=== PATIENT | female | born 1990 | race Caucasian/White ===

== ENCOUNTER 2019-07-21 08:36 | Emergency (ER) | payer BC, OTHER ==
[~2019-07-21] VITALS: Ht 160 cm; Wt 106.6 kg
[2019-07-21 09:07] LABS: Urine Bacteria NONE SEEN /hpf (None Seen); Urine Blood Negative /uL (Negative); Urine Specific Gravity 1.022 (1.001-1.035); Urine WBC 11 /hpf (0 - 5)
[2019-07-21 10:23] VITALS: BP 126/80
== END 2019-07-21 11:04 | disposition home or self-care (01) ==
LOC: ER 08:39
DX: O23.41 Unspecified infection of urinary tract in pregnancy, first trimester (principal); Z3A.01 Less than 8 weeks gestation of pregnancy
CPT/HCPCS: 36415; 81001; 84702

== ENCOUNTER 2021-09-06 10:47 | Emergency (ER) | payer BC ==
[~2021-09-06] VITALS: Ht 160 cm; Wt 113.4 kg
[2021-09-06 11:39] LABS: Basophils # (auto) 0 10 ^3/uL (0-0.2); Basophils % (auto) 0.6 % (0.0-2.0); Eosinophils # (auto) 0.2 10 ^3/uL (0-0.8); Eosinophils % (auto) 2.3 % (0.0-7.0); Hematocrit 45.4 % (36.0-46.0); Hemoglobin 15.7 g/dL (12.2-16.2); Lymphocytes # (auto) 2.4 10 ^3/uL (0.4-5.4); Lymphocytes % (auto) 31.5 % (10.0-50.0); Mean Corpuscular Hemoglobin 30.2 pg (28.0-32.0); Mean Corpuscular Hgb Conc. 34.5 g/dL (32.0-36.0); Mean Corpuscular Volume 87.3 fL (80.0-100.0); Monocytes # (auto) 0.4 10 ^3/uL (0-1.3); Monocytes % (auto) 4.5 % (0.0-12.0); Neutrophils # (auto) 4.7 10 ^3/uL (1.6-8.6); Neutrophils % (auto) 61.1 % (37.0-80.0); Nucleated Red Blood Cells % 0.1 %; Red Cell Distribution Width 12.9 % (11.8-14.3); White Blood Cell 7.8 10^3/uL (4.4-10.8)
[2021-09-06 11:47] LABS: Urine Bacteria NONE SEEN /hpf (None Seen); Urine Blood Negative /uL (Negative); Urine Specific Gravity 1.019 (1.001-1.035); Urine WBC 2 /hpf (0 - 5)
[2021-09-06 11:49] LABS: Albumin 4.2 g/dL (3.4-5.0); Calcium 9.1 mg/dL (8.5-10.1); Potassium 4.1 mmol/L (3.5-5.1)
[2021-09-06 11:53] LABS: BUN/Creatinine Ratio 13.6; Bilirubin, Total 0.6 mg/dL (0.2-1.0); Total Protein 8.2 g/dL (6.4-8.2)
[2021-09-06 16:48] VITALS: BP 142/69
== END 2021-09-06 16:03 | disposition home or self-care (01) ==
LOC: ER 10:47
DX: F41.9 Anxiety disorder, unspecified (principal)
CPT/HCPCS: 36415; 70450; 72125; 80053; 81001; 81025; 85025

== ENCOUNTER 2022-11-06 09:47 | Emergency (ER) | payer BC, MEDICAID ==
[~2022-11-06] VITALS: Ht 160 cm; Wt 122.0 kg
[2022-11-06] MEDS ORDERED: ALBUTEROL SULF 2.5 MG/0.5ML(0.5%) NEB SOLN HHN ONE (10:15)
[2022-11-06] MEDS ORDERED: predniSONE 20 MG TAB PO ONE (10:15)
[2022-11-06] MEDS ORDERED: IPRATROPIUM BROM 0.5 MG/2.5ML INH SOL HHN ONE (10:15)
[2022-11-06 11:24] LABS: Urine Specific Gravity 1.015 (1.001-1.035)
[2022-11-06 11:25] LABS: Urine Blood 1+ /uL (Negative)
[2022-11-06] MEDS ORDERED: METH4PAK PO (11:31)
[2022-11-06] MEDS ORDERED: AZIT1POW PO (11:31)
[2022-11-06 11:45] VITALS: BP 134/108
== END 2022-11-06 11:51 | disposition home or self-care (01) ==
LOC: ER 09:47
DX: J20.9 Acute bronchitis, unspecified (principal); Z20.822 Contact with and (suspected) exposure to COVID-19
CPT/HCPCS: 36415; 71046; 81003; 87426; 87804; 93005; 94640; 99285; J7512; J7644

== ENCOUNTER 2025-07-06 13:24 | Emergency (ER) | payer MEDICAID ==
[~2025-07-06] VITALS: Ht 160 cm; Wt 118.5 kg
[~2025-07-06 13:24] MED LIST: AZIT1POW PO; METH4PAK PO
[2025-07-06 13:26] VITALS: BP 158/88; PULSE 102; RESP 13; TEMP 98.3; O2SAT 98
--- NOTE | 2025-07-06 14:29 | ED.PDOC ---
ASSISTANT DIRECTOR OF ADMISSIONS HPI Comments A 35 YEAR OLD FEMALE PRESENTS TO THE ED WITH COMPLAINT OF . PATIENT STATES SHE IS CURRENTLY , BUT IS NOT SURE HOW FAR ALONG SHE IS AT THIS TIME. PATIENT NOTES THAT SHE HAS BEEN TAKING WEGOVY FOR WEIGHT LOSS AND IS WORRIED IF IT MAY BE AFFECTING HER AND WOULD LIKE TO BE EVALUATED. PATIENT REPORTS SHE HAS ALSO BEEN EXPERIENCING MILD PELVIC CRAMPING, PROMPTING HER ASSISTANT DIRECTOR OF ADMISSIONS DR BARTON TO INSTRUCT HER TO COME TO THE ED FOR EVALUATION. PATIENT DENIES FEVER, CHILLS, SHORTNESS OF BREATH, CHEST PAIN, ABDOMINAL PAIN, NAUSEA, VOMITING, HEADACHE, OR OTHER COMPLAINTS. NO OTHER SYMPTOMS OR MODIFYING FACTORS AT THIS TIME. PATIENT IS ALERT, ORIENTED X 4, AND HAS STEADY GAIT. Chief Complaint: Time Seen by MD: 13:44 Reviewed Notes: Nurses Notes, Medications, Allergies Allergies: Coded Allergies: Penicillins (Verified Allergy, Unknown, 07/06/25) Home Meds Active Scripts Methylprednisolone (Medrol Dosepak) 4 Mg Isaak, 4 MG PO UD, #21 TAB UAD Prov:JADA MAYEN MD 11/06/22 Azithromycin (Zithromax) 1 Gm Pow, 1 PACK PO ONCE, #1 PACK Prov:JADA MAYEN MD 11/06/22 Information Source: Patient Mode of Arrival: Ambulatory Timing: Days Prehospital treatment: None Severity: Mild Vaginal Discharge: None Vaginal Lesions: None Vaginal Mass: None Onset Of Mass/Bleeding: Spontaneous Sexual Activity: Last Consensual [place]: Unknown Control: None History of: Current Blood Type: Unknown Symptoms of Possible : None Associated Signs and Symptoms: None Past Medical History PAST MEDICAL HISTORY: Denies Surgical History: Denies all surgeries 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 History: Ovarian Cysts Family History Family History: Reviewed,noncontributory to illness Social History Smoker: Non-Smoker Alcohol: Occasionally Drugs: Denies Drug Use Lives In: Home Constitutional: denies: chills, diaphoresis, fatigue, fever, malaise, sweats, weakness, others EENTM: denies: blurred vision, double vision, ear bleeding, ear discharge, ear drainage, ear pain, ear ringing, eye pain, eye redness, hearing loss, mouth pain, mouth swelling, nasal discharge, nose bleeding, nose congestion, nose pain, photophobia, tearing, throat pain, throat swelling, voice changes, others Respiratory: denies: cough, hemoptysis, orthopnea, SOB at rest, shortness of breath, SOB with excertion, stridor, wheezing, others Cardiovascular: denies: chest pain, dizzy spells, diaphoresis, Dyspnea on exertion, edema, irregular heart beat, left arm pain, lightheadedness, palpit ations, PND, syncope, others Gastrointestinal: denies: abdomen distended, abdominal pain, blood streaked b owels, constipated, diarrhea, dysphagia, difficulty swallowing, hematemesis, melena, nausea, poor appetite, poor fluid intake, rectal bleeding, rectal pain, vomiting, others Genitourinary: reports: pain (PELVIC CRAMPING), ; denies: abnormal vagina bleeding, burning, dyspareunia, dysuria, flank pain, frequency, hematuria, incontinence, vagina discharge, urgency, others Neurological: denies: dizziness, fainting, headache, left sided numbness, left sided weakness, numbness, paresthesia, pre-existing deficit, right sided numbness, right sided weakness, seizure, speech problems, tingling, tremors, weakness, others Musculoskeletal: denies: back pain, gout, joint pain, joint swelling, muscle pain, muscle stiffness, neck pain, others Integumetry: denies: bruises, change in color, change in hair/nails, dryness, laceration, lesions, lumps, rash, wounds, others Allergic/Immunocompromised: denies: Difficulty Healing, Frequent Infections, Hives, Itching, others Hematologic/Lymphatic: denies: anemia, blood clots, easy bleeding, easy bruising, swollen glands, others Endocrine: denies: excessive hunger, excessive sweating, excessive thirst, excessive urination, flushing, intolerance to cold, intolerance to heat, unexplained weight gain, unexplained weight loss, others Psychiatric: denies: anxiety, bipolar disorder, depression, hopeless, panic disorder, schizophrenia, sleepless, suicidal, others All Other Systems: Reviewed and Negative Physical Exam General Appearance: No Apparent Distress, Obese HEENT: Normal ENT Inspection, PERRL/EOMI, Pharynx Normal, TMs Normal Neck: Full Range of Motion, Non-Tender, Normal, Normal Inspection Respiratory: Chest Non-Tender, Lungs Clear, No Accessory Muscle Use, No Respiratory Distress, Normal Breath Sounds Cardiovascular: No Edema, No JVD, No Murmur, No Gallop, Normal Peripheral Pulses, Regular Rate/Rhythm Breast Exam: Deferred Gastrointestinal: No Organomegaly, Non Tender, No Pulsatile Mass, Normal Bowel Sounds, Soft Genitalia: Deferred Pelvic: Normal External Exam, Tender Adnexa (MILD TENDERNESS PELVIC, NO GUARDING AND REBOUND TENDERNESS. 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 Was a procedure done?: No Differential Diagnosis (SENIOR 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 CONSULTANT) Vaginal Bleeding: N/A Mass / Lesion: N/A Vaginal Discharge: UTI, N/A Comments NORMAL , UTI, ACUTE CYSTITIS, WELL CHECK, SIDE EFFECT OF MEDICATION X-Ray, Labs, Meds, VS Vital Signs Date Time Temp Pulse Resp B/P (MAP) Pulse Ox O2 Delivery O2 Flow Rate FiO2 07/06/25 13:26 98.3 102 13 158/88 98 98.3 Lab Test 07/06/25 14:28 07/06/25 14:23 Range/Units White Blood Count 7.9 4.4-10.8 10^3/uL Red Blood Count 4.83 4.0-5.20 10^6/uL Hemoglobin 14.4 12.2-16.2 g/dL Hematocrit 42.6 36.0-46.0 % Mean Corpuscular Volume 88.3 80.0-100.0 fL Mean Corpuscular Hemoglobin 29.8 28.0-32.0 pg Mean Corpuscular Hemoglobin Concent 33.8 32.0-36.0 g/dL Red Cell Distribution Width 13.2 11.8-14.3 % Platelet Count 206 140-450 10^3/uL Mean Platelet Volume 9.0 6.9-10.8 fL Neutrophils (%) (Auto) 70.2 37.0-80.0 % Lymphocytes (%) (Auto) 25.3 10.0-50.0 % Monocytes (%) (Auto) 3.3 0.0-12.0 % Eosinophils (%) (Auto) 0.8 0.0-7.0 % Basophils (%) (Auto) 0.4 0.0-2.0 % Neutrophils # (Auto) 5.5 1.6-8.6 10 ^3/uL Lymphocytes # (Auto) 2.0 0.4-5.4 10 ^3/uL Monocytes # (Auto) 0.3 0-1.3 10 ^3/uL Eosinophils # (Auto) 0.1 0-0.8 10 ^3/uL Basophils # (Auto) 0 0-0.2 10 ^3/uL Nucleated Red Blood Cells 0.1 % Sodium Level 141 136-145 mmol/L Potassium Level 3.6 3.5-5.1 mmol/L Chloride Level 106 98-107 mmol/L Carbon Dioxide Level 25 20-31 mmol/L Anion Gap 10 5-15 Blood Urea Nitrogen 6 L 9-23 mg/dL Creatinine 0.65 0.550-1.02 mg/dL Glomerular Filtration Rate Calc 118 >90 mL/min BUN/Creatinine Ratio 9.2 L 10.0-20.0 Serum Glucose 120 H 74-106 mg/dL Calcium Level 9.8 8.7-10.4 mg/dL Beta HCG, Quantitative 1320.3 H 1.5-4.2 mIU/mL Urine Color Light-yellow Yellow Urine Clarity Turbid H Clear Urine pH 6.0 5.0-9.0 Urine Specific [place] 1.014 1.001-1.035 Urine Protein Negative Negative Urine Ketones Negative Negative Urine Blood Negative Negative /uL Urine Nitrite Negative Negative Urine Bilirubin Negative Negative Urine Urobilinogen Normal Negative mg/dL Urine Leukocyte Esterase 2+ Negative /uL Urine RBC 2 0 - 4 /hpf Urine Microscopic WBC 4 0-5 /HPF Urine Squamous Epithelial Cells Few <5 /hpf Urine Bacteria Few H None Seen /hpf Urine Mucus Few None Seen Urine Glucose Normal Normal mg/dL Technique: Real-time ultrasound images through the pelvis using a transabdominal transducer. For better evaluation of the ovaries and endometrial stripe, an endovaginal transducer was used. Indication: PELVIC PAIN, BETA-HC Comparison: None Findings: The uterus measures 9.8 cm. Small fluid collection in the endometrium measuring 5 mm. No definitive pole or yolk sac visualized. Cervical nabothian cysts. Right ovary measures 4.3 x 3.8 x 2.1 cm. Normal flow on color doppler images. No focal masses are identified. 1.4 cm right ovarian cyst. Left ovary nonvisualized. There is trace free fluid in the pelvis. Cystic lesion in the pelvic measuring 1.4 cm. Impression: Small endometrial fluid collection measuring 5 mm, possibly an early gestational sac. No pole/ yolk sac visualized. Can not exclude ectopic . Left ovary nonvisualized. 1.4 cm right ovarian cyst. Indeterminate cystic lesion in the pelvis measuring 1.4 cm. Again, can not exclude ectopic . Trace free pelvic fluid. ATED BY: KAT RICHARD MD DICTATED DATE/TIME: 07/06/251704 SIGNED BY: KAT RICHARD MD SIGNED DATE/TIME: 07/06/251704 CC: X-Ray, Labs, Meds, VS Comment EXTERNAL MEDICAL RECORDS REVIEWED: [NONE] INDEPENDENT HISTORIANS: [NONE] SOCIAL DETERMINANTS OF HEALTH: [NONE] LABS ORDERED: CBC, BMP, UA, URINE , BETA HCG QUANT REVIEWED AND INTERPRETED RESULTS: IMAGING ORDERED: NONE TREATMENTS ORDERED: PROCEDURES PERFORMED: NONE CRITICAL CARE TIME: NONE I HAVE DISCUSSED THE PATIENT WITH THE ATTENDING PHYSICIAN DR. BIANCHI AND HE AGREES WITH THE PATIENT'S PLAN OF CARE AND DISPOSITION. 1710: I HAVE CONSULTED THE ON-CALL ASSISTANT DIRECTOR OF ADMISSIONS DR. BARTON REGARDING THIS PATIENT'S CASE AND ULTRASOUND RESULTS AND SHE HAS SAID THE PATIENT IS OKAY TO BE DISCHARGED HOME, BUT SHOULD RETURN IN 2 DAYS FOR A BETA HCG QUANT RECHECK. BASED ON HISTORY OF PRESENT ILLNESS, AND PHYSICAL EXAM, PATIENT WILL BE DISCHARGED HOME. DISCUSSED PLAN FOR DISCHARGE HOME WITH RX []. MEDICATION WARNINGS GIVEN. SHARED DECISION MAKING: PATIENT INSTRUCTED TO FOLLOW UP WITH PRIMARY CARE PROV IDER IN 1-2 DAYS FOR RE-EVALUATION OF SYMPTOMS. PATIENT VERBALIZES UNDERSTANDING TO RETURN TO ED FOR NEW OR WORSENING SYMPTOMS OR IF FOLLOW UP WITH PCP CANNOT BE OBTAINED. PATIENT FEELS COMFORTABLE GOING HOME AT THIS TIME. ALL QUESTIONS ADDRESSED AT TIME OF DISCHARGE. Images Reviewed?: Images reviewed and evaluated by me Time of 1ST Reevaluation: 17:29 Reevaluation 1ST: Improved Consultation: fish tender (1710: I HAVE CONSULTED THE ON-CALL ASSISTANT DIRECTOR OF ADMISSIONS DR. BARTON REGARDING THIS PATIENT'S CASE AND ULTRASOUND RESULTS AND SHE HAS SAID THE PATIENT IS OKAY TO BE DISCHARGED HOME, BUT SHOULD RETURN IN 2 DAYS FOR A BETA HCG QUANT RECHECK.) Patient Education/Counseling: Diagnosis, Treatment, Need For Follow Up Family Education/Counseling: Diagnosis, Treatment, Need For Follow Up Medical Screening: No EMC Exist At This Time Departure 1 Departure Time of Disposition: 17:30 Impression: Primary Impression: Early stage of Disposition: HOME / SELF CARE / HOMELESS Condition: Stable Additional Instructions: FOLLOW UP WITH PCP, ASSISTANT DIRECTOR OF ADMISSIONS, OR RETURN TO ED IN 2 DAYS FOR BETA HCG QUANT RECHECK. RETURN TO ED FOR ANY NEW OR WORSENING SYMPTOMS. Discharged With: Self, Spouse Critical Care Note Critical Care Time?: No Stability Stability form required: No I personally scribed for SUE GONZALEZ ([email or web address]) on 07/06/25 at 14:29. Electronically submitted by Pete Alarcon (Clean Te[employer]). I personally scribed for SUE GONZALEZ ([email or web address]) on 07/06/25 at 14:32. Electronically submitted by Pete Alarcon ([employer]). I personally scribed for SUE GONZALEZ ([email or web address]) on 07/06/25 at 17:16. Electronically submitted by Pete Alarcon ([employer]). SUE GONZALEZ Jul 06, 2025 14:29
[2025-07-06 14:56] LABS: Hematocrit 42.6 % (36.0-46.0); Hemoglobin 14.4 g/dL (12.2-16.2); Mean Corpuscular Hemoglobin 29.8 pg (28.0-32.0); Mean Corpuscular Volume 88.3 fL (80.0-100.0); Nucleated Red Blood Cells % 0.1 %
[2025-07-06 15:04] LABS: Chloride 106 mmol/L (98-107); Potassium 3.6 mmol/L (3.5-5.1); Sodium 141 mmol/L (136-145)
[2025-07-06 15:05] LABS: Anion Gap 10 (5-15); Calcium 9.8 mg/dL (8.7-10.4); Carbon Dioxide 25 mmol/L (20-31)
[2025-07-06 15:10] LABS: BUN/Creatinine Ratio 9.2 (10.0-20.0)
[2025-07-06 15:11] LABS: Blood Urea Nitrogen 6 mg/dL (9-23); Glucose 120 mg/dL (74-106)
[2025-07-06 16:18] LABS: Urine Protein, UAD Negative (Negative)
--- NOTE | 2025-07-06 17:05 | DVH ---
Technique: Real-time ultrasound images through the pelvis using a transabdominal transducer. For bett er evaluation of the ovaries and endometrial stripe, an endovaginal transducer was used. Indication: PELVIC PAIN, BETA-HC Comparison: None Findings: The uterus measures 9.8 cm. Small fluid collection in the endometrium measuring 5 mm. No definitive pole or yolk sac visualized. Cervical nabothian cysts. Right ovary measures 4.3 x 3.8 x 2.1 cm. Normal flow on color doppler images. No focal masses are jim ntified. 1.4 cm right ovarian cyst. Left ovary nonvisualized. There is trace free fluid in the pelvis. Cystic lesion in the pelvic measuring 1.4 cm. Impression: Small endometrial fluid collection measuring 5 mm, possibly an early gestational sac. No pole/ yolk sac visualized. Can not exclude ectopic . Left ovary nonvisualized. 1.4 cm right ovarian cyst. Indeterminate cystic lesion in the pelvis measuring 1.4 cm. Again, can not exclude ectopic . Trace free pelvic fluid.
== END 2025-07-06 17:26 | disposition home or self-care (01) ==
LOC: ER 13:24
DX: O26.10 Low weight gain in pregnancy, unspecified trimester (principal); R10.2 Pelvic and perineal pain; Z3A.00 Weeks of gestation of pregnancy not specified; Z88.0 Allergy status to penicillin
CPT/HCPCS: 36415; 76801; 80048; 81001; 84702; 85025

== ENCOUNTER 2025-07-11 11:49 | Outpatient (CLI) | payer MEDICAID | END 2025-07-11 17:00 | disposition home or self-care (01) | LOC: LAB 11:49 | PROVIDERS: ATTEND Obstetrics & Gynecology | DX: N93.9 Abnormal uterine and vaginal bleeding, unspecified (principal) | CPT/HCPCS: 36415; 84144; 84702 ==

== ENCOUNTER 2025-07-13 06:16 | Outpatient (CLI) | payer MEDICAID | END 2025-07-13 17:00 | disposition home or self-care (01) | LOC: LAB 06:16 | PROVIDERS: ATTEND Obstetrics & Gynecology | DX: N93.9 Abnormal uterine and vaginal bleeding, unspecified (principal) | CPT/HCPCS: 36415; 84702 ==

== ENCOUNTER 2025-08-29 06:55 | Outpatient (CLI) | payer MEDICAID | END 2025-08-29 17:00 | disposition home or self-care (01) | LOC: LAB 06:55 | PROVIDERS: ATTEND Obstetrics & Gynecology | CPT/HCPCS: 82951 ==

== ENCOUNTER → 2025-09-08 | Outpatient (CLI) | payer MEDICAID ==
[2025-09-08 09:06] LABS: Hematocrit 42.2 % (36.0-46.0); Hemoglobin 14.3 g/dL (12.2-16.2); Mean Corpuscular Hemoglobin 29.6 pg (28.0-32.0); Mean Corpuscular Volume 87.4 fL (80.0-100.0); Nucleated Red Blood Cells % 0.1 %
[2025-09-08 10:37] LABS: Protein, Urine < 6.0 mg/dL (1-14)
[2025-09-08 10:38] LABS: Amphetamine Screen, Urine Neg (NEGATIVE); Barbiturate Scree,Urine Neg (NEGATIVE); Benzodiazephine Screen, Urine Neg (NEGATIVE); Cannabinoid Screen, Urine Neg (NEGATIVE); Cocaine Screen, Urine Neg (NEGATIVE); Opiate Scree,Urine Neg (NEGATIVE); Phencyclidine Screen, Urine Neg (NEGATIVE)
[2025-09-08 11:22] LABS: Free T4 (Free Thyroxine) 1.0 ng/dL (0.89-1.76)
[2025-09-08 11:53] LABS: Thyroid Stimulating Hormone 0.92 uIU/mL (0.55-4.78)
[2025-09-08 12:00] LABS: Beta HCG, Quantitative 23597.4 mIU/mL (1.5-4.2)
[2025-09-08 12:11] LABS: 24 Hr. Total Protein, Urine 119.99980 mg/24 Hr (<149.1); Urine Total Volume, 24 Hours 2000 mL
[2025-09-09 17:07] LABS: Chlamydia Trachomatis, NAA Negative (Negative); Neisseria gonorrhoeae, NAA Negative (Negative)
== END | disposition home or self-care (01) ==
LOC: LAB 08:33
DX: O23.41 Unspecified infection of urinary tract in pregnancy, first trimester (principal); O99.281 Endocrine, nutritional and metabolic diseases complicating pregnancy, first trimester; O10.911 Unspecified pre-existing hypertension complicating pregnancy, first trimester; N39.0 Urinary tract infection, site not specified; E28.2 Polycystic ovarian syndrome; Z11.2 Encounter for screening for other bacterial diseases; Z11.3 Encounter for screening for infections with a predominantly sexual mode of transmission; Z01.419 Encounter for gynecological examination (general) (routine) without abnormal findings; Z3A.00 Weeks of gestation of pregnancy not specified
CPT/HCPCS: 36415; 80307; 83036; 84144; 84156; 84439; 84443; 84702; 85025; 86703; 86762; 86787; 86850; 86900; 86901; 87086; 87340

== ENCOUNTER 2025-10-11 12:41 | Emergency (ER) | payer MEDICAID ==
[~2025-10-11] VITALS: Ht 160 cm; Wt 126.7 kg
--- NOTE | 2025-10-11 13:37 | ED.PDOC ---
History of Present Illness HPI Comments 35F presents to the ER w/ prior medical Hx of an Ovarian Cyst and the c/c of LE pain. Pt reports on currently being 17 weeks and was recently having lower back pain associated w/ LLE numbness/BLE thigh numbness when standing for to long. Denies any symptoms at this time. Patient denies any CP, SOB, dizziness, numbness, weakness, fever, chills, or recent fall. Chief Complaint: Lower Extremity Time Seen by MD: 13:30 Primary Care Provider: MARIAMAIES Reviewed Notes: Nurses Notes, Medications, Allergies Allergies: Coded Allergies: Penicillins (Verified Allergy, Unknown, 07/06/25) Home Meds Active Scripts Methylprednisolone (Medrol Dosepak) 4 Mg Isaak, 4 MG PO UD, #21 TAB UAD Prov:JADA MAYEN MD 11/06/22 Azithromycin (Zithromax) 1 Gm Pow, 1 PACK PO ONCE, #1 PACK Prov:JADA MAYEN MD 11/06/22 Information Source: Patient Mode of Arrival: Ambulatory Severity: Moderate Timing: Came on: Gradually Duration: Since onset Prehospital treatment: None Past Medical History PAST MEDICAL HISTORY: Denies Surgical History: Denies all surgeries 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 Family History Family History: Reviewed,noncontributory to illness, Unknown Social History Smoker: Non-Smoker Alcohol: Denies ETOH Use Drugs: Denies Drug Use Lives In: Home Constitutional: denies: chills, diaphoresis, fatigue, fever, malaise, sweats, weakness, others EENTM: denies: blurred vision, double vision, ear bleeding, ear discharge, ear drainage, ear pain, ear ringing, eye pain, eye redness, hearing loss, mouth pain, mouth swelling, nasal discharge, nose bleeding, nose congestion, nose pain, photophobia, tearing, throat pain, throat swelling, voice changes, others Respiratory: denies: cough, hemoptysis, orthopnea, SOB at rest, shortness of breath, SOB with excertion, stridor, wheezing, others Cardiovascular: denies: chest pain, dizzy spells, diaphoresis, Dyspnea on exertion, edema, irregular heart beat, left arm pain, lightheadedness, palpitations, PND, syncope, others Gastrointestinal: denies: abdomen distended, abdominal pain, blood streaked bowels, constipated, diarrhea, dysphagia, difficulty swallowing, hematemesis, m magy, nausea, poor appetite, poor fluid intake, rectal bleeding, rectal pain, vomiting, others Genitourinary: reports: (17 weeks); denies: abnormal vagina bleeding, burning, dyspareunia, dysuria, flank pain, frequency, hematuria, incontinence, pain, vagina discharge, urgency, others Neurological: reports: numbness (LLE and BLE thigh numbness); denies: dizziness, fainting, headache, left sided numbness, left sided weakness, paresthesia, pre-existing deficit, right sided numbness, right sided weakness, seizure, speech problems, tingling, tremors, weakness, others Musculoskeletal: denies: back pain, gout, joint pain, joint swelling, muscle pain, muscle stiffness, neck pain, others Integumetry: denies: bruises, change in color, change in hair/nails, dryness, laceration, lesions, lumps, rash, wounds, others Allergic/Immunocompromised: denies: Difficulty Healing, Frequent Infections, Hives, Itching, others Hematologic/Lymphatic: denies: anemia, blood clots, easy bleeding, easy bruising, swollen glands, others Endocrine: denies: excessive hunger, excessive sweating, excessive thirst, excessive urination, flushing, intolerance to cold, intolerance to heat, unexplained weight gain, unexplained weight loss, others Psychiatric: denies: anxiety, bipolar disorder, depression, hopeless, panic disorder, schizophrenia, sleepless, suicidal, others All Other Systems: Reviewed and Negative Physical Exam General Appearance: Moderate Distress, Normal HEENT: Normal ENT Inspection, Pharynx Normal, TMs Normal Neck: Full Range of Motion, Non-Tender, Normal, Normal Inspection Respiratory: Chest Non-Tender, Lungs Clear, No Accessory Muscle Use, No Respiratory Distress, Normal Breath Sounds Cardiovascular: No Edema, No JVD, No Murmur, No Gallop, Normal Peripheral Pulses, Regular Rate/Rhythm Breast Exam: Deferred Gastrointestinal: No Organomegaly, Non Tender, No Pulsatile Mass, Normal Bowel Sounds, Soft Genitalia: Deferred Pelvic: Deferred Rectal: Deferred Extremities: No calf tenderness, Normal capillary refill, Normal inspection, Normal range of motion, Non-tender, No pedal edema Musculoskeletal : Apperance: Normal Neurologic: Alert, 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 Was a procedure done?: No Differential Dx Considerations may include: Leg swelling X-Ray, Labs, Meds, VS Vital Signs Date Time Temp Pulse Resp B/P (MAP) Pulse Ox O2 Delivery O2 Flow Rate FiO2 10/11/25 12:43 98.2 95 18 122/74 99 98.2 Patient alert. Complaining of leg swelling. Vitals stable. Answering questions. Saturation pristine on room air. No urinary symptoms. DVT study reviewed within normal limits. Explained to the patient. Was told to follow up with her primary care physician. Was told to come back if there is any problem. Time of 1ST Reevaluation: 14:00 Reevaluation 1ST: Unchanged Patient Education/Counseling: Diagnosis, Treatment, Prognosis Family Education/Counseling: No Family Present SEPSIS Sepsis Screen Date sepsis recognized/suspect: Oct 11, 2025 Time Sepsis recognized/suspect: 1245 Recent Procedure: No On Antibiotic Therapy: No Respiratory Rate >20: No Heart Rate >90: Yes Temp<36 C (96.8 F) or >38.3 C: No SBP <90 or MAP <65 mmHG: No New Acute Mental Status Change: No Is the patient on CPAP, BIPAP,: No Physician Orders Bilat Lower Dvt (10/11/25 13:52) Urinalysis (10/11/25 13:52) Vital Signs Date Time Temp Pulse Resp B/P (MAP) Pulse Ox O2 Delivery O2 Flow Rate FiO2 10/11/25 12:43 98.2 95 18 122/74 99 98.2 Departure 1 Departure Time of Disposition: 16:05 Impression: Primary Impression: Normal Qualified Codes: Z34.90 - Encounter for supervision of normal , unspecified, unspecified trimester Additional Impression: Muscle strain Disposition: 01 HOME / SELF CARE / HOMELESS Condition: Good Discharged With: Self Critical Care Note Critical Care Time?: No Stability Stability form required: No Heart Score Heart Score: Heart Score Response (Comments) Value History N/A 0 EKG N/A 0 Age N/A 0 Risk Factors N/A 0 Troponin N/A 0 Total 0 I personally scribed for ARIAS,ALLISON MD ([email or web address]) on 10/11/25 at 13:37. Electronically submitted by Edu Salas ([email or web address]). ALLISON BIANCHI MD Oct 11, 2025 13:37
--- NOTE | 2025-10-11 14:53 | DVH ---
Bilateral lower extremity venous duplex Clinical History: dvt Comparison: None Technique: Duplex Doppler evaluation of the deep venous systems of both lower extremities from the common femoral veins to the popliteal veins including color Doppler and spectral/pulsed waveform analysis was performed. Findings: RIGHT SIDE: The common femoral vein demonstrates appropriate compressibility and waveform variability. There is compressibility/patency of the great saphenous vein at the proximal thigh. The femoral vein demonstrates appropriate compressibility and waveform variability. The deep femoral vein demonstrates appropriate compressibility and waveform variability. The popliteal vein demonstrates appropriate compressibility and waveform variability. Rouleaux formation visualized in the blood flow of the popliteal on the right. There is normal compressibility at the tibioperoneal trunk. LEFT SIDE: The common femoral vein demonstrates appropriate compressibility and waveform variability. There is compressibility/patency of the great saphenous vein at the proximal thigh. The femoral vein demonstrates appropriate compressibility and waveform variability. The deep femoral vein demonstrates appropriate compressibility and waveform variability. The popliteal vein demonstrates appropriate compressibility and waveform variability. Rouleaux flow formation in the left popliteal also visualized. There is normal compressibility at the tibioperoneal trunk. Impression: 1. No right or left femoropopliteal venous thrombosis. 2. Rouleaux formation of the blood flow noted in the right and left popliteal vein.
[2025-10-11 16:16] VITALS: BP 146/93; PULSE 87; RESP 18; TEMP 98.7
[2025-10-11 16:19] VITALS: O2SAT 99
== END 2025-10-11 16:19 | disposition home or self-care (01) ==
LOC: ER 12:41
DX: O26.891 Other specified pregnancy related conditions, first trimester (principal); S39.012A Strain of muscle, fascia and tendon of lower back, initial encounter; Z3A.00 Weeks of gestation of pregnancy not specified; Z88.0 Allergy status to penicillin; X58.XXXA Exposure to other specified factors, initial encounter; Y93.89 Activity, other specified; Y92.89 Other specified places as the place of occurrence of the external cause; Y99.8 Other external cause status
CPT/HCPCS: 93970

== ENCOUNTER 2025-10-29 09:32 | Observation (INO) | payer MEDICAID ==
--- NOTE | 2025-10-29 12:38 | DVHDS2 ---
Discharge Summary Date of Admission Oct 29, 2025 at 09:32 Date of Discharge: Oct 29, 2025 Admitting Diagnosis Weeks decreased movement. Wounds: On Labs/Diagnostic Data: None Brief Hx & Hospital Course: heart tones reassuring Consults/Reason for consult None Operations or Procedures None NST performed and reassuring Condition at Discharge: Good Final Diagnosis/Problems List 21 weeks reassuring heart tones Discharge Disposition: Home Discharge Instruct/Medications Diet: Regular Activity: No Restrictions, As Tolerated Activity comment: Kick counts labor precautions Scheduled Azithromycin (Zithromax), 1 PACK PO ONCE Methylprednisolone (Medrol Dosepak), 4 MG PO UD Discharge Statement: "Patient was advised to return to the ER or call 911 if any headaches, dizziness, shortness of breath, chest pain, abdominal pain, bleeding, fevers, or worsening of medical condition. Patient was counseled about treatment plan, medications, possible side effects, patientverbalized understanding. All questions were answered to the best of my ability. This discharge took greater then 30 minutes in planning, reviewing documentation, counseling the patient, and discussing with other team members." ASSESSMENT ASSESSMENT Assessment Reassuring heart tones Visit Coding OBGYN Date of Service: Oct 29, 2025 Billing Provider: DEBI MORAN DO [employer] Common Visit Codes: 05902-UDK/OBS SAME DATE (HIGH), 48615-EZH/OBS DISCH DAY <30MIN, 17846-DRW/OBS DISCH DAY >30MIN [employer] Procedure Codes: 93299-17- NON-STRESS TEST DEBI MORAN DO Oct 29, 2025 12:38
== END 2025-10-29 10:31 | disposition home or self-care (01) ==
LOC: LDRP 09:32
PROVIDERS: ADMIT Obstetrics & Gynecology; ATTEND Obstetrics & Gynecology
DX: O36.8120 Decreased fetal movements, second trimester, not applicable or unspecified (principal); Z3A.21 21 weeks gestation of pregnancy; Z98.890 Other specified postprocedural states
CPT/HCPCS: 81002; 94760; A4649; G0378